=== PATIENT | female | born 1970 | race Caucasian/White ===

== ENCOUNTER 2017-12-27 19:44 | Emergency (ER) | payer OTHER ==
[~2017-12-27] VITALS: Ht 157.5 cm; Wt 122.5 kg
--- NOTE | ~2017-12-27 | EKG ---
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
[~2017-12-27 19:44] MED LIST: CRESTOR20 MG PO; DEXILANT60 MG PO; LAMICTAL XR200 MG PO; LAMICTAL100 MG PO; MIRAPEX0.25 MG PO; MOBIC7.5 MG PO; MYRBETRIQ50 MG PO; NORFLEX100 MG PO; RISPERDAL 1 MG T1 MG PO; SYNTHROID50 MCG PO; TOPAMAX 100 MG100 MG PO
[2017-12-27 20:52] LABS: ABSOLUTE NEUTROPHILS 6.2 thou/uL (1.4-8.2); BASOPHILS 0.5 % (0.0-2.0); EOSINOPHILS 0.8 % (0.0-3.0); HEMATOCRIT 40.5 % (37.0-47.0); HEMOGLOBIN 13.4 gm/dL (12.0-15.0); LYMPHOCYTES 17.4 % (24.0-44.0); MCH 28.9 pg (26.0-34.0); MCHC 33.2 g/dL (28.0-37.0); MCV 87.1 fL (80.0-100.0); MONOCYTES 4.4 % (1.0-8.0); PLATELET COUNT 223 thou/uL (150-400); POLYS 76.9 % (36.0-66.0); RBC 4.65 mil/uL (4.20-5.00); RDW 13.7 % (10.5-14.5)
[2017-12-27 20:59] LABS: CALCIUM 9.1 mg/dL (8.5-10.1); POTASSIUM 3.5 mmol/L (3.5-5.1)
[2017-12-27] MEDS ORDERED: PREDNISONE 20 M20 MG PO (21:44)
[2017-12-27] MEDS ORDERED: LAMICTAL100 MG PO (21:44)
[2017-12-27] MEDS ORDERED: TOPAMAX 100 MG100 MG PO (21:44)
[2017-12-27] MEDS ORDERED: VENTOLIN HFA 1818 GM INH (21:44)
[2017-12-27] MEDS ORDERED: VISTARIL 25 MG25 M1 PO (21:47)
[2017-12-27 21:48] VITALS: BP 127/72
== END 2017-12-27 21:56 | disposition home or self-care (01) ==
LOC: ER 19:44
PROVIDERS: Nurse Practitioner
DX: J45.901 Unspecified asthma with (acute) exacerbation (principal); E11.9 Type 2 diabetes mellitus without complications; F32.9 Major depressive disorder, single episode, unspecified; F41.9 Anxiety disorder, unspecified; G47.30 Sleep apnea, unspecified; Z88.0 Allergy status to penicillin; Z88.1 Allergy status to other antibiotic agents; Z91.040 Latex allergy status; Z87.891 Personal history of nicotine dependence